=== PATIENT | male | born 1950 | race Two or more races ===

== ENCOUNTER 2020-07-22 23:12 | Emergency (ER) | payer OTHER, MEDICAID ==
[~2020-07-22] VITALS: Ht 177.8 cm; Wt 95.3 kg
[2020-07-22 23:40] VITALS: BP 142/81
[2020-07-22] MEDS ORDERED: cloNIDine HCL 0.1 MG TAB PO ONE (23:45)
== END 2020-07-22 23:53 | disposition left against medical advice (07) ==
LOC: ER 23:13
DX: I10 Essential (primary) hypertension (principal); Z53.21 Procedure and treatment not carried out due to patient leaving prior to being seen by health care provider

== ENCOUNTER 2021-06-29 20:28 | Emergency (ER) | payer OTHER, MEDICAID ==
[~2021-06-29] VITALS: Ht 180.3 cm; Wt 93.0 kg
[2021-06-29] MEDS ORDERED: FUROSEMIDE 40 MG/4 ML VIAL IV ONE (21:00)
[2021-06-29 23:55] VITALS: BP 132/80
== END 2021-06-29 23:58 | disposition home or self-care (01) ==
LOC: ER 20:28
DX: J20.9 Acute bronchitis, unspecified (principal); J44.9 Chronic obstructive pulmonary disease, unspecified
CPT/HCPCS: 71045; 93005